=== PATIENT | male | born 1950 | race Two or more races ===

== ENCOUNTER → 2021-08-25 | Outpatient (CLI) | payer MEDICARE, BC ==
[2021-08-25 14:30] LABS: BUN/Creatinine Ratio 17.1; Calcium 9.7 mg/dL (8.5-10.1); Potassium 4.7 mmol/L (3.5-5.1)
== END | disposition home or self-care (01) ==
LOC: LAB 12:29
PROVIDERS: ATTEND Student in an Organized Health Care Education/Training Program
DX: E11.9 Type 2 diabetes mellitus without complications (principal)
CPT/HCPCS: 36415; 80048; 82043; 83036

== ENCOUNTER → 2022-03-28 | Outpatient (CLI) | payer MEDICARE, BC ==
[2022-03-28 08:41] LABS: Basophils # (auto) 0.1 10 ^3/uL (0-0.2); Basophils % (auto) 1.5 % (0.0-2.0); Eosinophils # (auto) 0.5 10 ^3/uL (0-0.8); Hematocrit 45.6 % (41.0-53.0); Hemoglobin 14.8 g/dL (13.5-17.5); Lymphocytes # (auto) 1.5 10 ^3/uL (0.4-5.4); Lymphocytes % (auto) 23.8 % (10.0-50.0); Mean Corpuscular Hemoglobin 28.9 pg (28.0-32.0); Mean Corpuscular Hgb Conc. 32.4 g/dL (32.0-36.0); Mean Corpuscular Volume 89.1 fL (80.0-100.0); Monocytes # (auto) 0.4 10 ^3/uL (0-1.3); Monocytes % (auto) 6.5 % (0.0-12.0); Neutrophils # (auto) 3.8 10 ^3/uL (1.6-8.6); Neutrophils % (auto) 60.2 % (37.0-80.0); Nucleated Red Blood Cells % 0.2 %; Red Blood Cells 5.12 10^6/uL (4.5-5.90); Red Cell Distribution Width 14.5 % (11.8-14.3); White Blood Cell 6.4 10^3/uL (4.4-10.8)
[2022-03-28 08:47] LABS: Urine Bacteria NONE SEEN /hpf (None Seen); Urine Blood Negative /uL (Negative); Urine Specific Gravity 1.028 (1.001-1.035); Urine WBC <1 /hpf (0 - 3)
[2022-03-28 09:32] LABS: Potassium 4.1 mmol/L (3.5-5.1)
[2022-03-28 09:40] LABS: Calcium 8.7 mg/dL (8.5-10.1)
[2022-03-28 09:43] LABS: BUN/Creatinine Ratio 17.9
== END | disposition home or self-care (01) ==
LOC: LAB 08:21
PROVIDERS: ATTEND Student in an Organized Health Care Education/Training Program
DX: E11.9 Type 2 diabetes mellitus without complications (principal)
CPT/HCPCS: 36415; 80048; 81001; 83036; 85025

== ENCOUNTER → 2022-09-29 | Outpatient (CLI) | payer MEDICARE, BC ==
[2022-09-29 08:43] LABS: Basophils # (auto) 0.1 10 ^3/uL (0-0.2); Basophils % (auto) 1.4 % (0.0-2.0); Eosinophils # (auto) 0.3 10 ^3/uL (0-0.8); Hematocrit 46.8 % (41.0-53.0); Hemoglobin 15.9 g/dL (13.5-17.5); Lymphocytes # (auto) 1.5 10 ^3/uL (0.4-5.4); Lymphocytes % (auto) 24.9 % (10.0-50.0); Mean Corpuscular Hemoglobin 29.6 pg (28.0-32.0); Mean Corpuscular Hgb Conc. 33.9 g/dL (32.0-36.0); Mean Corpuscular Volume 87.3 fL (80.0-100.0); Monocytes # (auto) 0.4 10 ^3/uL (0-1.3); Monocytes % (auto) 5.9 % (0.0-12.0); Neutrophils # (auto) 3.8 10 ^3/uL (1.6-8.6); Neutrophils % (auto) 62.8 % (37.0-80.0); Nucleated Red Blood Cells % 0.1 %; Red Blood Cells 5.36 10^6/uL (4.5-5.90); Red Cell Distribution Width 14.9 % (11.8-14.3); White Blood Cell 6.1 10^3/uL (4.4-10.8)
[2022-09-29 09:52] LABS: Potassium 3.9 mmol/L (3.5-5.1)
[2022-09-29 10:03] LABS: Albumin 3.8 g/dL (3.4-5.0); Bilirubin, Total 0.8 mg/dL (0.2-1.0); Calcium 9.1 mg/dL (8.5-10.1); Total Protein 8.2 g/dL (6.4-8.2)
[2022-09-29 12:23] LABS: Urine Bacteria NONE SEEN /hpf (None Seen); Urine Blood Negative /uL (Negative); Urine Specific Gravity 1.032 (1.001-1.035); Urine WBC <1 /hpf (0 - 3)
[2022-10-01 18:06] LABS: IgE Mouse Urine <0.10 kU/L (Class 0)
== END | disposition home or self-care (01) ==
LOC: LAB 08:09
PROVIDERS: ATTEND Student in an Organized Health Care Education/Training Program
DX: I12.9 Hypertensive chronic kidney disease with stage 1 through stage 4 chronic kidney disease, or unspecified chronic kidney disease (principal); E11.22 Type 2 diabetes mellitus with diabetic chronic kidney disease; N18.9 Chronic kidney disease, unspecified; L50.0 Allergic urticaria
CPT/HCPCS: 36415; 80053; 80061; 81001; 82785; 83036; 84443; 85025

== ENCOUNTER → 2023-01-04 | Outpatient (CLI) | payer MEDICARE, BC ==
[2023-01-04 07:25] LABS: Basophils # (auto) 0.1 10 ^3/uL (0-0.2); Basophils % (auto) 0.9 % (0.0-2.0); Eosinophils # (auto) 0.4 10 ^3/uL (0-0.8); Hematocrit 47.6 % (41.0-53.0); Hemoglobin 15.5 g/dL (13.5-17.5); Lymphocytes # (auto) 1.8 10 ^3/uL (0.4-5.4); Lymphocytes % (auto) 24.7 % (10.0-50.0); Mean Corpuscular Hemoglobin 29.5 pg (28.0-32.0); Mean Corpuscular Hgb Conc. 32.7 g/dL (32.0-36.0); Mean Corpuscular Volume 90.1 fL (80.0-100.0); Monocytes # (auto) 0.6 10 ^3/uL (0-1.3); Monocytes % (auto) 7.7 % (0.0-12.0); Neutrophils # (auto) 4.5 10 ^3/uL (1.6-8.6); Neutrophils % (auto) 60.7 % (37.0-80.0); Red Blood Cells 5.28 10^6/uL (4.5-5.90); Red Cell Distribution Width 15.2 % (11.8-14.3); White Blood Cell 7.4 10^3/uL (4.4-10.8)
[2023-01-04 08:10] LABS: Albumin 3.5 g/dL (3.4-5.0); BUN/Creatinine Ratio 22.8 (10.0-20.0); Calcium 9.1 mg/dL (8.5-10.1); Potassium 4.3 mmol/L (3.5-5.1)
[2023-01-04 08:13] LABS: Bilirubin, Total 0.5 mg/dL (0.2-1.0); Total Protein 8.4 g/dL (6.4-8.2)
== END | disposition home or self-care (01) ==
LOC: LAB 07:09
PROVIDERS: ATTEND Student in an Organized Health Care Education/Training Program
DX: Z12.11 Encounter for screening for malignant neoplasm of colon (principal); I10 Essential (primary) hypertension; E11.9 Type 2 diabetes mellitus without complications
CPT/HCPCS: 36415; 80053; 83036; 85025

== ENCOUNTER → 2023-01-09 | Outpatient (CLI) | payer MEDICARE, BC ==
[2023-01-09 13:46] LABS: Urine Bacteria NONE SEEN /hpf (None Seen); Urine Blood Negative /uL (Negative); Urine Budding Yeast MODERATE /hpf (None Seen); Urine Specific Gravity 1.032 (1.001-1.035); Urine WBC 2 /hpf (0 - 3)
== END | disposition home or self-care (01) ==
LOC: LAB 13:03
PROVIDERS: ATTEND Student in an Organized Health Care Education/Training Program
DX: Z12.11 Encounter for screening for malignant neoplasm of colon (principal); I10 Essential (primary) hypertension; E11.9 Type 2 diabetes mellitus without complications
CPT/HCPCS: 81001; 82274

== ENCOUNTER 2023-03-28 23:54 | Inpatient (IN) | payer MEDICARE, BC ==
[~2023-03-28] VITALS: Ht 177.8 cm; Wt 99.4 kg
[2023-03-29 00:52] LABS: Basophils # (auto) 0 10 ^3/uL (0-0.2); Basophils % (auto) 0.2 % (0.0-2.0); Eosinophils # (auto) 0 10 ^3/uL (0-0.8); Hematocrit 49.6 % (41.0-53.0); Hemoglobin 15.8 g/dL (13.5-17.5); Lymphocytes # (auto) 0.8 10 ^3/uL (0.4-5.4); Lymphocytes % (auto) 4.6 % (10.0-50.0); Mean Corpuscular Hemoglobin 29.7 pg (28.0-32.0); Mean Corpuscular Hgb Conc. 31.8 g/dL (32.0-36.0); Mean Corpuscular Volume 93.4 fL (80.0-100.0); Monocytes # (auto) 0.9 10 ^3/uL (0-1.3); Monocytes % (auto) 5.2 % (0.0-12.0); Neutrophils # (auto) 14.7 10 ^3/uL (1.6-8.6); Red Blood Cells 5.31 10^6/uL (4.5-5.90); Red Cell Distribution Width 15.1 % (11.8-14.3); White Blood Cell 16.3 10^3/uL (4.4-10.8)
[2023-03-29] MEDS ORDERED: ONDANSETRON HCL 4 MG/2 ML VIAL IV ONE (01:00)
[2023-03-29 01:07] LABS: Alanine Aminotransferase 20 U/L (16-61); Albumin 3.4 g/dL (3.4-5.0); Anion Gap 31 (5-15); Aspartate Aminotransferase 15 U/L (15-37); BUN/Creatinine Ratio 11.4 (10.0-20.0); Blood Urea Nitrogen 32 mg/dL (7-18); Carbon Dioxide 12 mmol/L (21-32); Chloride 91 mmol/L (98-107); GFR African American 29 mL/min; GFR Non-African American 24 mL/min; Lipase 145 U/L (73-393); Sodium 134 mmol/L (136-145)
[2023-03-29 01:09] LABS: Alkaline Phosphatase 124 U/L (45-117); Bilirubin, Total 0.8 mg/dL (0.2-1.0); Total Protein 9.1 g/dL (6.4-8.2)
[2023-03-29 01:15] LABS: Calcium 13.7 mg/dL (8.5-10.1); Glucose 426 mg/dL (74-106)
[2023-03-29] MEDS ORDERED: DEXTROSE (50%) 50ML SYRG IV PRN ×2 (02:00→21:00)
[2023-03-29] MEDS ORDERED: InsuLIN R (HUMAN) 100 UNITS in SODIUM CHL 0.9% 99 ML IV SCH (02:00)
[2023-03-29] MEDS: SODIUM CHLORIDE 0.9% 1,000 ML IV SCH ×4 (02:13→16:18)
[2023-03-29] MEDS ORDERED: InsuLIN REG 1unit/0.01ml Soln (100units/ml) ONE (02:17)
[2023-03-29] MEDS ORDERED: INSULIN LANTUS (GLARGINE) 1 /0.01ml (100units/ml) SC ONE (02:30)
[2023-03-29 02:47] LABS: Magnesium 1.9 mg/dL (1.6-2.6); Phosphorus 8.6 mg/dL (2.5-4.90)
[2023-03-29] MEDS ORDERED: ACCU-CHEK COMFORT CURVE STRIP VI SCH (03:00)
[2023-03-29] MEDS: ACCU-CHEK COMFORT CURVE STRIP VI SCH ×13 (03:58→21:09)
[2023-03-29 04:22] LABS: Urine Bacteria NONE SEEN /hpf (None Seen); Urine Blood Negative /uL (Negative); Urine Specific Gravity 1.017 (1.001-1.035); Urine WBC 1 /hpf (0 - 3)
[2023-03-29] MEDS ORDERED: MORPHINE SULFATE INJ 2 MG/ml SYRG IV PRN (05:30)
[2023-03-29] MEDS ORDERED: NITROGLYCERIN 0.4 MG SL TAB SL PRN (05:30)
[2023-03-29] MEDS ORDERED: ONDANSETRON HCL 4 MG/2 ML VIAL IV PRN (05:30)
[2023-03-29] MEDS ORDERED: SODIUM CHLORIDE 0.9% 1,000 ML IV SCH (06:00)
[2023-03-29 08:24] LABS: BUN/Creatinine Ratio 13.2 (10.0-20.0); Calcium 12.2 mg/dL (8.5-10.1); Potassium 4.2 mmol/L (3.5-5.1)
[2023-03-29] MEDS: PANTOPRAZOLE 40 MG/10 ML VIAL INJ IV SCH (09:33)
[2023-03-29 14:13] LABS: BUN/Creatinine Ratio 13.4 (10.0-20.0); Calcium 11.6 mg/dL (8.5-10.1); Potassium 4.1 mmol/L (3.5-5.1)
[2023-03-29] MEDS: PIPERACILLIN-TAZOB 3.375GM 100 ML IV SCH ×2 (16:21→22:05)
[2023-03-29 20:22] LABS: BUN/Creatinine Ratio 13.2 (10.0-20.0); Calcium 10.6 mg/dL (8.5-10.1); Potassium 3.8 mmol/L (3.5-5.1)
[2023-03-29] MEDS: DOCUSATE SOD 100 MG CAP PO SCH (22:05)
[2023-03-30] MEDS: ACCU-CHEK COMFORT CURVE STRIP VI SCH ×7 (00:14→23:51)
[2023-03-30] MEDS: InsuLIN REG 1unit/0.01ml Soln (100units/ml) SC SCH ×7 (00:18→23:51)
[2023-03-30] MEDS: ACETAMINOPHEN 325 MG TAB PO PRN ×2 (01:17→14:20)
[2023-03-30 05:19] LABS: Basophils # (auto) 0 10 ^3/uL (0-0.2); Basophils % (auto) 0.3 % (0.0-2.0); Eosinophils # (auto) 0 10 ^3/uL (0-0.8); Eosinophils % (auto) 0.1 % (0.0-7.0); Hematocrit 38.3 % (41.0-53.0); Hemoglobin 12.8 g/dL (13.5-17.5); Lymphocytes # (auto) 1.4 10 ^3/uL (0.4-5.4); Lymphocytes % (auto) 10.4 % (10.0-50.0); Mean Corpuscular Hemoglobin 29.8 pg (28.0-32.0); Mean Corpuscular Hgb Conc. 33.3 g/dL (32.0-36.0); Mean Corpuscular Volume 89.3 fL (80.0-100.0); Monocytes # (auto) 1.1 10 ^3/uL (0-1.3); Monocytes % (auto) 8.2 % (0.0-12.0); Neutrophils # (auto) 10.9 10 ^3/uL (1.6-8.6); Red Blood Cells 4.29 10^6/uL (4.5-5.90); Red Cell Distribution Width 14.5 % (11.8-14.3); White Blood Cell 13.5 10^3/uL (4.4-10.8)
[2023-03-30] MEDS ORDERED: dilTIAZem 25 MG/5 ML VIAL IV ONE ×3 (05:40→06:00)
[2023-03-30 05:41] LABS: Albumin 2.6 g/dL (3.4-5.0); Calcium 10.7 mg/dL (8.5-10.1); Potassium 3.4 mmol/L (3.5-5.1)
[2023-03-30 05:46] LABS: Bilirubin, Total 0.5 mg/dL (0.2-1.0); Total Protein 6.8 g/dL (6.4-8.2)
[2023-03-30] MEDS: PIPERACILLIN-TAZOB 3.375GM 100 ML IV SCH ×3 (06:02→22:55)
[2023-03-30] MEDS ORDERED: AMIODARONE HCL 150 MG in D5W 5% 100 ML IV ONE (08:15)
[2023-03-30] MEDS ORDERED: AMIODARONE 450mg/250ml AE 250 ML IV SCH (08:30)
[2023-03-30] MEDS: SODIUM CHLORIDE 0.9% 1,000 ML IV SCH ×4 (09:24→22:59)
[2023-03-30] MEDS ORDERED: MAGNESIUM SULFATE 1GM/100ML 100 ML IV ONE (09:45)
[2023-03-30] MEDS ORDERED: POTASSIUM CHLORIDE 60 MEQ, LIDOCAINE 1% (LOCAL ANESTH.) 6 ML in SODIUM CHL 0.9% 500 ML IV ONE (09:45)
[2023-03-30] MEDS: DOCUSATE SOD 100 MG CAP PO SCH ×2 (10:00→22:54)
[2023-03-30 10:19] LABS: Hematocrit 40.8 % (41.0-53.0); Hemoglobin 13.2 g/dL (13.5-17.5)
[2023-03-30] MEDS: PANTOPRAZOLE 40 MG/10 ML VIAL INJ IV SCH (11:02)
[2023-03-30] MEDS: INSULIN LANTUS (GLARGINE) 1 /0.01ml (100units/ml) SC SCH (11:06)
[2023-03-30] MEDS ORDERED: dilTIAZem HCL 60 MG TAB GT SCH (12:30)
[2023-03-30] MEDS: dilTIAZem HCL 60 MG TAB PO SCH ×2 (14:20→20:55)
[2023-03-30] MEDS ORDERED: AMIODARONE HCL 200 MG TAB PO ONE (16:00)
[2023-03-30] MEDS: MORPHINE SULFATE INJ 2 MG/ml SYRG IV PRN (16:20)
[2023-03-30] MEDS ORDERED: AMIODARONE HCL 200 MG TAB PO SCH (22:00)
[2023-03-31] MEDS: dilTIAZem HCL 60 MG TAB PO SCH ×3 (01:17→20:46)
[2023-03-31] MEDS: MORPHINE SULFATE INJ 2 MG/ml SYRG IV PRN ×2 (03:42→17:08)
[2023-03-31] MEDS: InsuLIN REG 1unit/0.01ml Soln (100units/ml) SC SCH ×6 (05:06→23:51)
[2023-03-31] MEDS: ACCU-CHEK COMFORT CURVE STRIP VI SCH ×6 (05:06→23:49)
[2023-03-31] MEDS: PIPERACILLIN-TAZOB 3.375GM 100 ML IV SCH ×3 (06:01→22:28)
[2023-03-31 07:46] LABS: BUN/Creatinine Ratio 12.9 (10.0-20.0); Magnesium 1.7 mg/dL (1.6-2.6); Potassium 3.5 mmol/L (3.5-5.1)
[2023-03-31] MEDS ORDERED: POTASSIUM EFFERVESENT TAB 25 MEQ PO ONE (08:45)
[2023-03-31] MEDS ORDERED: MAGNESIUM SULFATE 1GM/100ML 100 ML IV ONE (08:45)
[2023-03-31] MEDS: PANTOPRAZOLE 40 MG/10 ML VIAL INJ IV SCH (09:50)
[2023-03-31] MEDS: DOCUSATE SOD 100 MG CAP PO SCH ×2 (09:50→20:41)
[2023-03-31] MEDS: APIXABAN 5 MG TAB PO SCH ×2 (09:50→20:40)
[2023-03-31] MEDS: INSULIN LANTUS (GLARGINE) 1 /0.01ml (100units/ml) SC SCH (09:51)
[2023-03-31] MEDS: SODIUM CHLORIDE 0.9% 1,000 ML IV SCH ×3 (12:00→22:27)
[2023-03-31] MEDS ORDERED: SODIUM CHLORIDE 0.9% 1,000 ML IV ONE (16:30)
[2023-03-31 17:00] VITALS: BP 122/52
[2023-03-31 22:00] VITALS: BP 137/60
[2023-04-01] MEDS: ACCU-CHEK COMFORT CURVE STRIP VI SCH ×5 (04:00→20:00)
[2023-04-01] MEDS: InsuLIN REG 1unit/0.01ml Soln (100units/ml) SC SCH ×6 (04:03→23:21)
[2023-04-01 05:00] VITALS: BP 135/63
[2023-04-01] MEDS: PIPERACILLIN-TAZOB 3.375GM 100 ML IV SCH ×3 (05:43→22:07)
[2023-04-01 05:54] LABS: BUN/Creatinine Ratio 10.8 (10.0-20.0); Calcium 8.5 mg/dL (8.5-10.1); Magnesium 1.7 mg/dL (1.6-2.6); Potassium 3.5 mmol/L (3.5-5.1)
[2023-04-01] MEDS: SODIUM CHLORIDE 0.9% 1,000 ML IV SCH ×3 (06:55→20:15)
[2023-04-01 08:45] VITALS: BP 146/77
[2023-04-01] MEDS ORDERED: EMPA1TAB5 PO (09:58)
[2023-04-01] MEDS ORDERED: APIX5TAB PO (09:58)
[2023-04-01] MEDS ORDERED: METF-370 PO (09:58)
[2023-04-01] MEDS ORDERED: ALBU2TAB11 IN (09:58)
[2023-04-01] MEDS ORDERED: PIO30T PO (09:58)
[2023-04-01] MEDS ORDERED: PIOG1TAB36 PO (09:58)
[2023-04-01] MEDS ORDERED: INSU1.2I SC (09:58)
[2023-04-01] MEDS ORDERED: MONT10TA23 PO (09:58)
[2023-04-01] MEDS ORDERED: ATOR40TA52 PO (09:58)
[2023-04-01] MEDS ORDERED: INSLISPI SC (09:58)
[2023-04-01] MEDS: INSULIN LANTUS (GLARGINE) 1 /0.01ml (100units/ml) SC SCH (10:00)
[2023-04-01] MEDS ORDERED: ALBUTEROL SULF 2.5 MG/0.5ML(0.5%) NEB SOLN NEB PRN (10:00)
[2023-04-01 10:15] VITALS: BP 140/71
[2023-04-01] MEDS: PANTOPRAZOLE 40 MG/10 ML VIAL INJ IV SCH (10:28)
[2023-04-01] MEDS: DOCUSATE SOD 100 MG CAP PO SCH ×2 (10:28→22:04)
[2023-04-01] MEDS: dilTIAZem HCL 60 MG TAB PO SCH ×2 (10:29→22:04)
[2023-04-01] MEDS: APIXABAN 5 MG TAB PO SCH ×2 (10:29→22:04)
[2023-04-01 12:56] VITALS: BP 133/81
[2023-04-01] MEDS: MORPHINE SULFATE INJ 2 MG/ml SYRG IV PRN (12:58)
[2023-04-01] MEDS: ALBUTEROL SULF 2.5 MG/0.5ML(0.5%) NEB SOLN NEB SCH ×2 (13:09→18:18)
[2023-04-01 17:00] VITALS: BP 132/80
[2023-04-01 22:00] VITALS: BP 144/65
[2023-04-02] MEDS: ALBUTEROL SULF 2.5 MG/0.5ML(0.5%) NEB SOLN NEB SCH ×3 (00:15→11:25)
[2023-04-02] MEDS: SODIUM CHLORIDE 0.9% 1,000 ML IV SCH ×2 (02:55→10:03)
[2023-04-02] MEDS: InsuLIN REG 1unit/0.01ml Soln (100units/ml) SC SCH ×3 (04:00→12:43)
[2023-04-02] MEDS: ACCU-CHEK COMFORT CURVE STRIP VI SCH ×4 (04:00→12:38)
[2023-04-02 05:00] VITALS: BP 124/75
[2023-04-02] MEDS: PIPERACILLIN-TAZOB 3.375GM 100 ML IV SCH (06:00)
[2023-04-02 09:23] VITALS: BP 106/61
[2023-04-02] MEDS: dilTIAZem HCL 60 MG TAB PO SCH (10:00)
[2023-04-02] MEDS: PANTOPRAZOLE 40 MG/10 ML VIAL INJ IV SCH (10:03)
[2023-04-02] MEDS: APIXABAN 5 MG TAB PO SCH (10:03)
[2023-04-02] MEDS: INSULIN LANTUS (GLARGINE) 1 /0.01ml (100units/ml) SC SCH (10:14)
[2023-04-02] MEDS: DOCUSATE SOD 100 MG CAP PO SCH (10:17)
[2023-04-02 13:29] VITALS: BP 119/60
[2023-04-02 15:02] VITALS: BP 106/61
== END 2023-04-02 15:30 | DRG 871 ==
LOC: EDBD 23:54 → ER 23:57 → TELE 03-29 05:25 → TELE-EAST 03-31 15:45
PROVIDERS: ADMIT Family Medicine; ATTEND Family Medicine
PROC: 05HA33Z Insertion of Infusion Device into Left Brachial Vein, Percutaneous Approach (ICD-10-PCS; principal; 2023-03-29)
PROC: B54NZZA Ultrasonography of Left Upper Extremity Veins, Guidance (ICD-10-PCS; 2023-03-29)
DX: A41.9 Sepsis, unspecified organism (principal); E11.10 Type 2 diabetes mellitus with ketoacidosis without coma; G93.41 Metabolic encephalopathy; J18.9 Pneumonia, unspecified organism; S22.42XA Multiple fractures of ribs, left side, initial encounter for closed fracture; I48.20 Chronic atrial fibrillation, unspecified; N17.9 Acute kidney failure, unspecified; I69.354 Hemiplegia and hemiparesis following cerebral infarction affecting left non-dominant side; E86.0 Dehydration; D64.9 Anemia, unspecified; E66.9 Obesity, unspecified; I45.10 Unspecified right bundle-branch block; E78.5 Hyperlipidemia, unspecified; N18.9 Chronic kidney disease, unspecified; X58.XXXA Exposure to other specified factors, initial encounter; Z20.822 Contact with and (suspected) exposure to COVID-19; E11.22 Type 2 diabetes mellitus with diabetic chronic kidney disease; I12.9 Hypertensive chronic kidney disease with stage 1 through stage 4 chronic kidney disease, or unspecified chronic kidney disease; Y93.89 Activity, other specified; Y92.89 Other specified places as the place of occurrence of the external cause; Y99.8 Other external cause status; Z68.31 Body mass index [BMI] 31.0-31.9, adult; Z87.891 Personal history of nicotine dependence; Z74.01 Bed confinement status; Z87.828 Personal history of other (healed) physical injury and trauma; Z99.3 Dependence on wheelchair
CPT/HCPCS: 36415; 36600; 70450; 71045; 71250; 74176; 80048; 80053; 81001; 82010; 82805; 82962; 83690; 83735; 83930; 84100; 84443; 84484; 85014; 85018; 85025; 87040; 87426; 93005; 93306; 94640; 97163; C9113; G0378; J1815; J2001; J2405; J2543; J7060

== ENCOUNTER → 2023-07-24 | Outpatient (CLI) | payer MEDICARE, BC ==
[~2023-07-24] MED LIST: ALBU2TAB11 IN; APIX5TAB PO; ATOR40TA52 PO; EMPA1TAB5 PO; INSLISPI SC; INSU1.2I SC; METF-370 PO; MONT10TA23 PO; PIO30T PO; PIOG1TAB36 PO
[2023-07-24 08:09] LABS: Urine WBC None Seen /hpf (0 - 3)
[2023-07-24 08:12] LABS: Basophils # (auto) 0.1 10 ^3/uL (0-0.2); Basophils % (auto) 1.3 % (0.0-2.0); Eosinophils # (auto) 0.5 10 ^3/uL (0-0.8); Eosinophils % (auto) 6.3 % (0.0-7.0); Hematocrit 44.2 % (41.0-53.0); Hemoglobin 14.6 g/dL (13.5-17.5); Lymphocytes # (auto) 1.8 10 ^3/uL (0.4-5.4); Lymphocytes % (auto) 22.9 % (10.0-50.0); Mean Corpuscular Hemoglobin 29.1 pg (28.0-32.0); Mean Corpuscular Volume 88.1 fL (80.0-100.0); Monocytes # (auto) 0.5 10 ^3/uL (0-1.3); Monocytes % (auto) 6.5 % (0.0-12.0); Neutrophils # (auto) 4.9 10 ^3/uL (1.6-8.6); Red Blood Cells 5.02 10^6/uL (4.5-5.90); Red Cell Distribution Width 13.8 % (11.8-14.3); White Blood Cell 7.8 10^3/uL (4.4-10.8)
[2023-07-24 08:37] LABS: Urine Bacteria NONE SEEN /hpf (None Seen); Urine Blood Negative /uL (Negative); Urine Clarity Clear (Clear); Urine Protein, UAD 1+ (Negative); Urine Specific Gravity 1.019 (1.001-1.035); Urine Urobilinogen Normal (Negative); Urine pH 5.5 (5.0-8.0)
[2023-07-24 08:39] LABS: Alanine Aminotransferase 19 U/L (7-40); Alkaline Phosphatase 88 U/L (46-116); Anion Gap 5 (5-15); Aspartate Aminotransferase 19 U/L (13-40); BUN/Creatinine Ratio 17.5 (10.0-20.0); Blood Urea Nitrogen 20 mg/dL (9-23); Calcium 8.9 mg/dL (8.5-10.1); Carbon Dioxide 27 mmol/L (20-30); Chloride 105 mmol/L (98-107); Cholesterol 154 mg/dL (< 200); Glucose 126 mg/dL (74-106); HDL Cholesterol 36 mg/dL (40-59); LDL Cholesterol 105 mg/dL (< 100); Potassium 4.3 mmol/L (3.5-5.1); Sodium 137 mmol/L (136-145); Triglycerides 120 mg/dL (< 150)
[2023-07-24 08:40] LABS: Bilirubin, Total 0.6 mg/dL (0.2-1.0); Total Protein 7.5 g/dL (5.7-8.2); Urine Color Straw (Yellow)
== END | disposition home or self-care (01) ==
LOC: LAB 07:55
DX: E11.22 Type 2 diabetes mellitus with diabetic chronic kidney disease (principal); N18.9 Chronic kidney disease, unspecified; R80.9 Proteinuria, unspecified
CPT/HCPCS: 36415; 80053; 80061; 81001; 83036; 85025

== ENCOUNTER 2023-09-06 20:55 | Inpatient (IN) | payer MEDICARE, BC ==
[~2023-09-06] VITALS: Ht 185.4 cm; Wt 93.7 kg
[2023-09-06 21:43] LABS: Basophils # (auto) 0 10 ^3/uL (0-0.2); Basophils % (auto) 0.7 % (0.0-2.0); Eosinophils # (auto) 0.1 10 ^3/uL (0-0.8); Eosinophils % (auto) 2.3 % (0.0-7.0); Hematocrit 42.5 % (41.0-53.0); Lymphocytes # (auto) 1.6 10 ^3/uL (0.4-5.4); Lymphocytes % (auto) 33.4 % (10.0-50.0); Mean Corpuscular Hgb Conc. 32.9 g/dL (32.0-36.0); Mean Corpuscular Volume 88.1 fL (80.0-100.0); Monocytes # (auto) 0.5 10 ^3/uL (0-1.3); Monocytes % (auto) 9.5 % (0.0-12.0); Neutrophils # (auto) 2.6 10 ^3/uL (1.6-8.6); Neutrophils % (auto) 54.1 % (37.0-80.0); Nucleated Red Blood Cells % 0.1 %; Red Blood Cells 4.82 10^6/uL (4.5-5.90); Red Cell Distribution Width 14.7 % (11.8-14.3); White Blood Cell 4.9 10^3/uL (4.4-10.8)
[2023-09-06 21:57] LABS: INR 1.08 (0.9-1.15); Prothrombin Time 11.3 sec (9.3-11.8)
[2023-09-06 22:15] LABS: Alanine Aminotransferase 29 U/L (7-40); Alkaline Phosphatase 120 U/L (46-116); Anion Gap 5 (5-15); Aspartate Aminotransferase 35 U/L (13-40); Blood Urea Nitrogen 20 mg/dL (9-23); Calcium 8.4 mg/dL (8.7-10.4); Carbon Dioxide 26 mmol/L (20-30); Chloride 101 mmol/L (98-107); Glucose 286 mg/dL (74-106); Magnesium 1.6 mg/dL (1.6-2.6); Potassium 4.6 mmol/L (3.5-5.1); Sodium 132 mmol/L (136-145)
[2023-09-06 22:16] LABS: Albumin 3.6 g/dL (3.2-4.8)
[2023-09-06 22:17] LABS: Bilirubin, Total 0.3 mg/dL (0.2-1.0); Total Protein 6.7 g/dL (5.7-8.2)
[2023-09-07] VITALS (10 sets, daily range): BP systolic 127–156; BP diastolic 55–68; PULSE 75–90; RESP 18–19; TEMP 98.1–98.7; O2SAT 90–96
[2023-09-07] MEDS ORDERED: AZITHROMYCIN 500MG/ 250ML 250 ML IV ONE (00:15)
[2023-09-07] MEDS ORDERED: cefTRIAXone 1GM/50ML D5W 50 ML IV ONE ×3 (00:15→13:15)
[2023-09-07] MEDS ORDERED: FUROSEMIDE 40 MG/4 ML VIAL IV ONE (00:15)
[2023-09-07] MEDS ORDERED: ASPirin 325 MG TAB PO ONE (00:15)
[2023-09-07] MEDS ORDERED: ONDANSETRON HCL 4 MG/2 ML VIAL IV ONE (00:15)
[2023-09-07] MEDS ORDERED: MORPHINE SULFATE 4 MG/ML SYR/VIAL IV ONE (00:15)
[2023-09-07] MEDS ORDERED: ENOXAPARIN SOD 100 MG/1 ML SYRINGE SC ONE (00:15)
[2023-09-07] MEDS ORDERED: NITROGLYCERIN 0.4 MG SL TAB SL PRN (01:00)
[2023-09-07] MEDS ORDERED: MORPHINE SULFATE INJ 2 MG/ml SYRG IV PRN (01:00)
[2023-09-07] MEDS ORDERED: guaiFENesin 200 MG/10 ML UD PO ONE (02:30)
[2023-09-07] MEDS ORDERED: DEXTROSE (50%) 50ML SYRG IV PRN (05:00)
[2023-09-07] MEDS: ACCU-CHEK COMFORT CURVE STRIP VI SCH ×4 (06:13→23:26)
[2023-09-07] MEDS: InsuLIN REG 1unit/0.01ml Soln (100units/ml) SC SCH ×4 (06:14→23:26)
[2023-09-07] MEDS: ACETAMINOPHEN 325 MG TAB PO PRN (06:27)
[2023-09-07] MEDS: APIXABAN 5 MG TAB PO SCH ×2 (10:00→20:24)
[2023-09-07] MEDS ORDERED: InsuLIN REG 1unit/0.01ml Soln (100units/ml) ONE (12:04)
[2023-09-07] MEDS: METOPROLOL TARTRATE 50 MG TAB PO SCH ×2 (12:17→20:25)
[2023-09-07] MEDS: FUROSEMIDE 40 MG TAB PO SCH (12:18)
[2023-09-07] MEDS: MORPHINE SULFATE INJ 2 MG/ml SYRG IV PRN ×2 (14:25→20:22)
[2023-09-07] MEDS: ONDANSETRON HCL 4 MG/2 ML VIAL IV PRN ×2 (14:33→20:08)
[2023-09-07] MEDS: amLODIPine BESYLATE 5 MG TAB PO SCH (18:15)
[2023-09-07] MEDS ORDERED: amLODIPine BESYLATE 5 MG TAB ONE (18:26)
[2023-09-07] MEDS: ATORVASTATIN 20 MG TAB PO SCH (20:23)
[2023-09-08] VITALS (11 sets, daily range): BP systolic 113–141; BP diastolic 49–65; PULSE 58–69; RESP 16–19; TEMP 97.4–99.2; O2SAT 90–95
[2023-09-08] MEDS: ACCU-CHEK COMFORT CURVE STRIP VI SCH ×3 (05:31→18:41)
[2023-09-08] MEDS: InsuLIN REG 1unit/0.01ml Soln (100units/ml) SC SCH ×3 (05:34→18:34)
[2023-09-08 07:32] LABS: Chloride 100 mmol/L (98-107); Potassium 3.7 mmol/L (3.5-5.1); Sodium 134 mmol/L (136-145)
[2023-09-08 07:33] LABS: Anion Gap 11 (5-15); Calcium 8.3 mg/dL (8.5-10.1); Carbon Dioxide 23 mmol/L (20-30)
[2023-09-08 07:38] LABS: BUN/Creatinine Ratio 15.4 (10.0-20.0); Basophils # (auto) 0 10 ^3/uL (0-0.2); Basophils % (auto) 0.9 % (0.0-2.0); Blood Urea Nitrogen 16 mg/dL (9-23); Eosinophils # (auto) 0 10 ^3/uL (0-0.8); Eosinophils % (auto) 0.6 % (0.0-7.0); Glucose 200 mg/dL (74-106); Hematocrit 39.9 % (41.0-53.0); Hemoglobin 13.3 g/dL (13.5-17.5); Lymphocytes # (auto) 1.6 10 ^3/uL (0.4-5.4); Lymphocytes % (auto) 35.2 % (10.0-50.0); Mean Corpuscular Hemoglobin 29.1 pg (28.0-32.0); Mean Corpuscular Hgb Conc. 33.5 g/dL (32.0-36.0); Mean Corpuscular Volume 86.9 fL (80.0-100.0); Monocytes # (auto) 0.5 10 ^3/uL (0-1.3); Monocytes % (auto) 11.7 % (0.0-12.0); Neutrophils # (auto) 2.3 10 ^3/uL (1.6-8.6); Neutrophils % (auto) 51.6 % (37.0-80.0); Nucleated Red Blood Cells % 0.2 %; Red Blood Cells 4.59 10^6/uL (4.5-5.90); Red Cell Distribution Width 14.2 % (11.8-14.3); White Blood Cell 4.4 10^3/uL (4.4-10.8)
[2023-09-08] MEDS: amLODIPine BESYLATE 5 MG TAB PO SCH (09:00)
[2023-09-08] MEDS: FUROSEMIDE 40 MG TAB PO SCH (09:00)
[2023-09-08] MEDS: cefTRIAXone 1GM/50ML D5W 50 ML IV SCH (09:01)
[2023-09-08] MEDS: METOPROLOL TARTRATE 50 MG TAB PO SCH ×2 (09:01→22:09)
[2023-09-08] MEDS: APIXABAN 5 MG TAB PO SCH ×2 (09:02→22:10)
[2023-09-08] MEDS: MORPHINE SULFATE INJ 2 MG/ml SYRG IV PRN ×2 (12:46→22:23)
[2023-09-08] MEDS: ONDANSETRON HCL 4 MG/2 ML VIAL IV PRN ×2 (13:04→22:22)
[2023-09-08] MEDS ORDERED: MAGNESIUM SULFATE 1GM/100ML 100 ML IV ONE (14:15)
[2023-09-08] MEDS ORDERED: POTASSIUM CHL 20 Meq TABLET PO ONE (14:15)
[2023-09-08] MEDS ORDERED: FUROSEMIDE 20 MG/2 ML VIAL IV ONE (14:15)
[2023-09-08] MEDS ORDERED: amLODIPine BESYLATE 5 MG TAB PO SCH (18:00)
[2023-09-08] MEDS: FUROSEMIDE 40 MG/4 ML VIAL IV SCH (18:32)
[2023-09-08] MEDS: ATORVASTATIN 20 MG TAB PO SCH (22:09)
[2023-09-09] VITALS (8 sets, daily range): BP systolic 95–172; BP diastolic 55–71; PULSE 60–75; RESP 14–22; TEMP 97.2–98; O2SAT 91–95
[2023-09-09] MEDS: ACCU-CHEK COMFORT CURVE STRIP VI SCH ×4 (00:13→18:14)
[2023-09-09] MEDS: InsuLIN REG 1unit/0.01ml Soln (100units/ml) SC SCH ×4 (00:16→18:13)
[2023-09-09] MEDS: FUROSEMIDE 40 MG/4 ML VIAL IV SCH ×2 (05:49→18:14)
[2023-09-09] MEDS ORDERED: cloNIDine HCL 0.1 MG TAB PO ONE (07:00)
[2023-09-09] MEDS: ONDANSETRON HCL 4 MG/2 ML VIAL IV PRN (08:01)
[2023-09-09] MEDS: cefTRIAXone 1GM/50ML D5W 50 ML IV SCH (08:02)
[2023-09-09] MEDS: amLODIPine BESYLATE 5 MG TAB PO SCH (10:00)
[2023-09-09] MEDS: METOPROLOL TARTRATE 50 MG TAB PO SCH ×2 (10:00→21:49)
[2023-09-09] MEDS: APIXABAN 5 MG TAB PO SCH ×2 (10:40→21:49)
[2023-09-09] MEDS: ATORVASTATIN 20 MG TAB PO SCH (21:48)
[2023-09-10] VITALS (12 sets, daily range): BP systolic 108–128; BP diastolic 59–68; PULSE 9–89; RESP 17–19; TEMP 97.4–98.4; O2SAT 91–97
[2023-09-10] MEDS: ACCU-CHEK COMFORT CURVE STRIP VI SCH ×5 (00:19→20:16)
[2023-09-10] MEDS: InsuLIN REG 1unit/0.01ml Soln (100units/ml) SC SCH ×5 (00:21→20:16)
[2023-09-10] MEDS: ACETAMINOPHEN 325 MG TAB PO PRN (02:47)
[2023-09-10] MEDS: FUROSEMIDE 40 MG/4 ML VIAL IV SCH ×2 (06:22→17:06)
[2023-09-10] MEDS: cefTRIAXone 1GM/50ML D5W 50 ML IV SCH (09:14)
[2023-09-10] MEDS: APIXABAN 5 MG TAB PO SCH ×2 (09:15→21:11)
[2023-09-10] MEDS ORDERED: DEXTROSE (50%) 50ML SYRG IV PRN (09:45)
[2023-09-10] MEDS: amLODIPine BESYLATE 5 MG TAB PO SCH (10:00)
[2023-09-10] MEDS: METOPROLOL TARTRATE 50 MG TAB PO SCH ×2 (10:00→21:11)
[2023-09-10] MEDS: ATORVASTATIN 20 MG TAB PO SCH (21:12)
[2023-09-10] MEDS: ALBUTEROL SULF 2.5 MG/0.5ML(0.5%) NEB SOLN NEB PRN (21:45)
[2023-09-11] VITALS (13 sets, daily range): BP systolic 125–138; BP diastolic 55–70; PULSE 60–93; RESP 16–21; TEMP 97.1–98.3; O2SAT 88–94
[2023-09-11] MEDS: InsuLIN REG 1unit/0.01ml Soln (100units/ml) SC SCH ×6 (00:30→20:30)
[2023-09-11] MEDS: ACCU-CHEK COMFORT CURVE STRIP VI SCH ×6 (04:00→20:22)
[2023-09-11] MEDS: FUROSEMIDE 40 MG/4 ML VIAL IV SCH ×2 (06:15→17:29)
[2023-09-11] MEDS: APIXABAN 5 MG TAB PO SCH ×2 (09:30→21:57)
[2023-09-11] MEDS: cefTRIAXone 1GM/50ML D5W 50 ML IV SCH (09:30)
[2023-09-11] MEDS: METOPROLOL TARTRATE 50 MG TAB PO SCH ×2 (10:00→21:53)
[2023-09-11] MEDS: amLODIPine BESYLATE 5 MG TAB PO SCH (10:00)
[2023-09-11] MEDS: ALBUTEROL SULF 2.5 MG/0.5ML(0.5%) NEB SOLN NEB PRN (13:36)
[2023-09-11] MEDS: HYDROcodone-ACET 5/325MG TAB PO PRN (17:39)
[2023-09-11] MEDS: ATORVASTATIN 20 MG TAB PO SCH (21:53)
[2023-09-12] VITALS (10 sets, daily range): BP systolic 120–143; BP diastolic 57–76; PULSE 62–77; RESP 17–20; TEMP 97.6–98.6; O2SAT 90–99
[2023-09-12] MEDS: ACCU-CHEK COMFORT CURVE STRIP VI SCH ×6 (00:08→20:00)
[2023-09-12] MEDS: InsuLIN REG 1unit/0.01ml Soln (100units/ml) SC SCH ×6 (00:09→20:32)
[2023-09-12] MEDS: ONDANSETRON HCL 4 MG/2 ML VIAL IV PRN ×3 (04:35→21:47)
[2023-09-12] MEDS: FUROSEMIDE 40 MG/4 ML VIAL IV SCH ×2 (06:06→17:48)
[2023-09-12] MEDS: cefTRIAXone 1GM/50ML D5W 50 ML IV SCH (08:47)
[2023-09-12] MEDS: METOPROLOL TARTRATE 50 MG TAB PO SCH ×2 (08:49→21:43)
[2023-09-12] MEDS: amLODIPine BESYLATE 5 MG TAB PO SCH (08:49)
[2023-09-12] MEDS: APIXABAN 5 MG TAB PO SCH ×2 (09:32→21:43)
[2023-09-12] MEDS: ALBUTEROL SULF 2.5 MG/0.5ML(0.5%) NEB SOLN NEB PRN (10:33)
[2023-09-12] MEDS: ATORVASTATIN 20 MG TAB PO SCH (21:43)
[2023-09-13] VITALS (8 sets, daily range): BP systolic 102–145; BP diastolic 50–85; PULSE 61–89; RESP 16–20; TEMP 36.3; O2SAT 90–95
[2023-09-13] MEDS: InsuLIN REG 1unit/0.01ml Soln (100units/ml) SC SCH ×5 (00:56→16:29)
[2023-09-13] MEDS: ACCU-CHEK COMFORT CURVE STRIP VI SCH ×5 (00:56→16:02)
[2023-09-13] MEDS: FUROSEMIDE 40 MG/4 ML VIAL IV SCH (04:58)
[2023-09-13] MEDS: cefTRIAXone 1GM/50ML D5W 50 ML IV SCH (09:16)
[2023-09-13] MEDS: APIXABAN 5 MG TAB PO SCH (09:17)
[2023-09-13] MEDS: METOPROLOL TARTRATE 50 MG TAB PO SCH (09:17)
[2023-09-13] MEDS: amLODIPine BESYLATE 5 MG TAB PO SCH (09:18)
[2023-09-13 15:01] LABS: COVID19 ANTIGEN SOFIA FIA NEGATIVE (NEGATIVE)
[2023-09-13] MEDS: HYDROcodone-ACET 5/325MG TAB PO PRN (16:03)
== END 2023-09-13 18:23 | DRG 281 ==
LOC: ER 20:55 → EDBD 20:55 → TELE 09-07 01:02 → TELE-WESTW 09-07 08:22
PROVIDERS: ADMIT Nurse Practitioner; ATTEND Family Medicine
DX: I21.4 Non-ST elevation (NSTEMI) myocardial infarction (principal); I48.19 Other persistent atrial fibrillation; I69.354 Hemiplegia and hemiparesis following cerebral infarction affecting left non-dominant side; I50.32 Chronic diastolic (congestive) heart failure; I11.0 Hypertensive heart disease with heart failure; R07.81 Pleurodynia; I25.10 Atherosclerotic heart disease of native coronary artery without angina pectoris; E11.9 Type 2 diabetes mellitus without complications; Z20.822 Contact with and (suspected) exposure to COVID-19; E66.9 Obesity, unspecified; J01.10 Acute frontal sinusitis, unspecified; E78.00 Pure hypercholesterolemia, unspecified; F17.200 Nicotine dependence, unspecified, uncomplicated; Z71.6 Tobacco abuse counseling; I25.2 Old myocardial infarction; Z79.01 Long term (current) use of anticoagulants; Z79.4 Long term (current) use of insulin; Z74.01 Bed confinement status; Z95.828 Presence of other vascular implants and grafts; Z87.828 Personal history of other (healed) physical injury and trauma; Z68.27 Body mass index [BMI] 27.0-27.9, adult; R06.03 Acute respiratory distress
CPT/HCPCS: 36415; 71045; 80048; 80053; 82962; 83036; 83735; 83880; 84484; 85025; 85379; 85610; 85730; 87426; 93005; 94640; 96365; 96368; 96372; 96375; 97110; 97116; 97163; 97530; 99291; G0378; J1815; J2405

== ENCOUNTER → 2023-10-30 | Outpatient (CLI) | payer MEDICARE, BC ==
[2023-10-30 11:09] LABS: Basophils # (auto) 0.1 10 ^3/uL (0-0.2); Basophils % (auto) 0.9 % (0.0-2.0); Eosinophils # (auto) 0.5 10 ^3/uL (0-0.8); Eosinophils % (auto) 6.6 % (0.0-7.0); Hematocrit 41.7 % (41.0-53.0); Hemoglobin 13.6 g/dL (13.5-17.5); Lymphocytes # (auto) 1.7 10 ^3/uL (0.4-5.4); Lymphocytes % (auto) 22.1 % (10.0-50.0); Mean Corpuscular Hemoglobin 29.5 pg (28.0-32.0); Mean Corpuscular Hgb Conc. 32.7 g/dL (32.0-36.0); Mean Corpuscular Volume 90.3 fL (80.0-100.0); Monocytes # (auto) 0.6 10 ^3/uL (0-1.3); Neutrophils # (auto) 4.9 10 ^3/uL (1.6-8.6); Neutrophils % (auto) 62.4 % (37.0-80.0); Nucleated Red Blood Cells % 0.1 %; Red Blood Cells 4.62 10^6/uL (4.5-5.90); White Blood Cell 7.9 10^3/uL (4.4-10.8)
[2023-10-30 11:26] LABS: Alanine Aminotransferase 42 U/L (7-40); Alkaline Phosphatase 127 U/L (46-116); Anion Gap 6 (5-15); Aspartate Aminotransferase 25 U/L (13-40); BUN/Creatinine Ratio 17.7 (10.0-20.0); Blood Urea Nitrogen 20 mg/dL (9-23); Calcium 9.1 mg/dL (8.5-10.1); Carbon Dioxide 29 mmol/L (20-30); Chloride 105 mmol/L (98-107); Cholesterol 132 mg/dL (< 200); Glucose 146 mg/dL (74-106); HDL Cholesterol 41 mg/dL (40-59); LDL Cholesterol 80 mg/dL (< 100); Potassium 3.9 mmol/L (3.5-5.1); Sodium 140 mmol/L (136-145); Triglycerides 103 mg/dL (< 150)
[2023-10-30 11:27] LABS: Bilirubin, Total 0.7 mg/dL (0.2-1.0)
[2023-10-30 14:02] LABS: Urine Bacteria FEW /hpf (None Seen); Urine Blood Negative /uL (Negative); Urine Clarity Clear (Clear); Urine Color Yellow (Yellow); Urine Protein, UAD TRACE (Negative); Urine Specific Gravity 1.026 (1.001-1.035); Urine Urobilinogen Normal (Negative); Urine WBC <1 /hpf (0 - 3); Urine pH 5.5 (5.0-8.0)
[2023-10-30 14:46] LABS: Creatinine, Urine 94.07 mg/dL (30.0-125.0)
== END | disposition home or self-care (01) ==
LOC: LAB 09:29
PROVIDERS: ATTEND Student in an Organized Health Care Education/Training Program
DX: I10 Essential (primary) hypertension (principal); E11.9 Type 2 diabetes mellitus without complications
CPT/HCPCS: 36415; 80053; 80061; 81001; 82043; 82570; 83036; 85025

== ENCOUNTER → 2023-11-29 | Outpatient (CLI) | payer MEDICARE, BC ==
[2023-11-29 08:54] LABS: Basophils # (auto) 0.1 10 ^3/uL (0-0.2); Basophils % (auto) 1.2 % (0.0-2.0); Eosinophils % (auto) 11.7 % (0.0-7.0); Hemoglobin 13.9 g/dL (13.5-17.5); Lymphocytes # (auto) 1.9 10 ^3/uL (0.4-5.4); Lymphocytes % (auto) 21.7 % (10.0-50.0); Mean Corpuscular Hemoglobin 29.3 pg (28.0-32.0); Mean Corpuscular Hgb Conc. 33.1 g/dL (32.0-36.0); Mean Corpuscular Volume 88.7 fL (80.0-100.0); Monocytes # (auto) 0.5 10 ^3/uL (0-1.3); Monocytes % (auto) 5.5 % (0.0-12.0); Neutrophils # (auto) 5.2 10 ^3/uL (1.6-8.6); Neutrophils % (auto) 59.9 % (37.0-80.0); Red Blood Cells 4.74 10^6/uL (4.5-5.90); Red Cell Distribution Width 14.3 % (11.8-14.3); White Blood Cell 8.7 10^3/uL (4.4-10.8)
[2023-11-29 09:56] LABS: Alanine Aminotransferase 26 U/L (7-40); Albumin 4.3 g/dL (3.2-4.8); Alkaline Phosphatase 91 U/L (46-116); Anion Gap 6 (5-15); Aspartate Aminotransferase 23 U/L (13-40); BUN/Creatinine Ratio 20.8 (10.0-20.0); Bilirubin, Total 0.4 mg/dL (0.2-1.0); Blood Urea Nitrogen 21 mg/dL (9-23); Calcium 9.4 mg/dL (8.5-10.1); Carbon Dioxide 29 mmol/L (20-30); Chloride 101 mmol/L (98-107); Glucose 224 mg/dL (74-106); Potassium 4.4 mmol/L (3.5-5.1); Sodium 136 mmol/L (136-145); Total Protein 7.5 g/dL (5.7-8.2)
== END | disposition home or self-care (01) ==
LOC: LAB 08:30
PROVIDERS: ATTEND Student in an Organized Health Care Education/Training Program
DX: Z12.11 Encounter for screening for malignant neoplasm of colon (principal); E11.9 Type 2 diabetes mellitus without complications; I10 Essential (primary) hypertension; R35.1 Nocturia; J30.2 Other seasonal allergic rhinitis
CPT/HCPCS: 36415; 80053; 82785; 83036; 84153; 85025

== ENCOUNTER → 2024-08-21 | Outpatient (CLI) | payer MEDICARE, BC ==
[2024-08-21 08:01] LABS: Basophils # (auto) 0.1 10 ^3/uL (0-0.2); Basophils % (auto) 1.3 % (0.0-2.0); Eosinophils # (auto) 0.4 10 ^3/uL (0-0.8); Eosinophils % (auto) 5.1 % (0.0-7.0); Hematocrit 46.2 % (41.0-53.0); Hemoglobin 15.3 g/dL (13.5-17.5); Lymphocytes # (auto) 1.6 10 ^3/uL (0.4-5.4); Lymphocytes % (auto) 20.8 % (10.0-50.0); Mean Corpuscular Hemoglobin 29.2 pg (28.0-32.0); Mean Corpuscular Hgb Conc. 33.1 g/dL (32.0-36.0); Mean Corpuscular Volume 88.4 fL (80.0-100.0); Monocytes # (auto) 0.4 10 ^3/uL (0-1.3); Monocytes % (auto) 5.9 % (0.0-12.0); Neutrophils % (auto) 66.9 % (37.0-80.0); Nucleated Red Blood Cells % 0.1 %; Platelet Count (auto) 343 10^3/uL (140-450); Red Blood Cells 5.23 10^6/uL (4.5-5.90); Red Cell Distribution Width 15.1 % (11.8-14.3); White Blood Cell 7.5 10^3/uL (4.4-10.8)
[2024-08-21 08:42] LABS: Alanine Aminotransferase 24 U/L (7-40); Alkaline Phosphatase 115 U/L (46-116); Anion Gap 8 (5-15); BUN/Creatinine Ratio 16.1 (10.0-20.0); Blood Urea Nitrogen 18 mg/dL (9-23); Calcium 9.6 mg/dL (8.7-10.4); Carbon Dioxide 29 mmol/L (20-31); Chloride 102 mmol/L (98-107); Potassium 4.9 mmol/L (3.5-5.1); Sodium 139 mmol/L (136-145)
[2024-08-21 08:43] LABS: Albumin 4.2 g/dL (3.2-4.8); Aspartate Aminotransferase 20 U/L (13-40); Bilirubin, Total 0.3 mg/dL (0.2-1.0); Total Protein 7.8 g/dL (5.7-8.2)
[2024-08-21 08:44] LABS: Glucose 228 mg/dL (74-106)
[2024-08-21 11:04] LABS: Urine Bacteria None Seen /hpf (None Seen)
[2024-08-21 11:25] LABS: Urine Blood Negative /uL (Negative); Urine Clarity Clear (Clear); Urine Color Light-Yellow (Yellow); Urine Protein, UAD 1+ (Negative); Urine Specific Gravity 1.025 (1.001-1.035); Urine Urobilinogen Normal (Negative); Urine WBC <1 /hpf (0 - 3); Urine pH 5.5 (5.0-9.0)
[2024-08-21 12:13] LABS: Creatinine, Urine 67.99 mg/dL (30.0-125.0)
== END | disposition home or self-care (01) ==
LOC: LAB 07:33
PROVIDERS: ATTEND Student in an Organized Health Care Education/Training Program
DX: I10 Essential (primary) hypertension (principal); E11.9 Type 2 diabetes mellitus without complications
CPT/HCPCS: 36415; 80053; 81001; 82043; 82570; 83036; 84443; 85025

== ENCOUNTER → 2024-11-13 | Outpatient (CLI) | payer MEDICARE, BC ==
[2024-11-13 08:43] LABS: Basophils # (auto) 0.1 10 ^3/uL (0-0.2); Basophils % (auto) 1.1 % (0.0-2.0); Eosinophils # (auto) 0.2 10 ^3/uL (0-0.8); Eosinophils % (auto) 2.5 % (0.0-7.0); Hematocrit 48.9 % (41.0-53.0); Lymphocytes # (auto) 1.6 10 ^3/uL (0.4-5.4); Lymphocytes % (auto) 20.4 % (10.0-50.0); Mean Corpuscular Hemoglobin 29.1 pg (28.0-32.0); Mean Corpuscular Hgb Conc. 32.7 g/dL (32.0-36.0); Mean Corpuscular Volume 89.2 fL (80.0-100.0); Monocytes # (auto) 0.4 10 ^3/uL (0-1.3); Monocytes % (auto) 5.9 % (0.0-12.0); Neutrophils # (auto) 5.4 10 ^3/uL (1.6-8.6); Neutrophils % (auto) 70.1 % (37.0-80.0); Nucleated Red Blood Cells % 0.1 %; Platelet Count (auto) 370 10^3/uL (140-450); Red Blood Cells 5.49 10^6/uL (4.5-5.90); Red Cell Distribution Width 14.3 % (11.8-14.3); White Blood Cell 7.6 10^3/uL (4.4-10.8)
[2024-11-13 09:19] LABS: Alanine Aminotransferase 21 U/L (7-40); Anion Gap 9 (5-15); Aspartate Aminotransferase 16 U/L (13-40); BUN/Creatinine Ratio 18.5 (10.0-20.0); Calcium 9.9 mg/dL (8.7-10.4); Carbon Dioxide 27 mmol/L (20-31); Triglycerides 126 mg/dL (< 150)
[2024-11-13 09:20] LABS: Albumin 4.6 g/dL (3.2-4.8); Bilirubin, Total 0.5 mg/dL (0.2-1.0); Cholesterol 161 mg/dL (< 200); HDL Cholesterol 42 mg/dL (40-59)
[2024-11-13 09:25] LABS: Alkaline Phosphatase 117 U/L (46-116); Blood Urea Nitrogen 25 mg/dL (9-23); Chloride 98 mmol/L (98-107); Glucose 320 mg/dL (74-106); LDL Cholesterol 108 mg/dL (< 100); Potassium 5.2 mmol/L (3.5-5.1); Sodium 134 mmol/L (136-145); Total Protein 8.2 g/dL (5.7-8.2)
[2024-11-14 08:07] LABS: PSA Free 1.24 ng/mL; Prostate Specific Antigen 5.7 ng/mL (0.0-4.0)
== END | disposition home or self-care (01) ==
LOC: LAB 08:08
PROVIDERS: ATTEND Student in an Organized Health Care Education/Training Program
DX: I10 Essential (primary) hypertension (principal); E11.9 Type 2 diabetes mellitus without complications; R35.1 Nocturia
CPT/HCPCS: 36415; 80053; 80061; 83036; 84153; 84154; 84443; 85025

== ENCOUNTER 2025-06-19 07:55 | Outpatient (CLI) | payer MEDICARE, BC ==
[2025-06-19 08:55] LABS: Hematocrit 42.9 % (41.0-53.0); Hemoglobin 14.5 g/dL (13.5-17.5); Mean Corpuscular Hemoglobin 29.5 pg (28.0-32.0); Mean Corpuscular Volume 87.4 fL (80.0-100.0); Nucleated Red Blood Cells % 0.1 %
[2025-06-19 09:26] LABS: Alanine Aminotransferase 15 U/L (7-40); Albumin 3.9 g/dL (3.2-4.8); Anion Gap 9 (5-15); BUN/Creatinine Ratio 12.6 (10.0-20.0); Bilirubin, Total 0.5 mg/dL (0.2-1.0); Blood Urea Nitrogen 12 mg/dL (9-23); Carbon Dioxide 27 mmol/L (20-31); Chloride 103 mmol/L (98-107); Potassium 4.2 mmol/L (3.5-5.1); Sodium 139 mmol/L (136-145); Total Protein 7.8 g/dL (5.7-8.2)
[2025-06-19 09:27] LABS: Alkaline Phosphatase 116 U/L (46-116); Calcium 8.6 mg/dL (8.7-10.4); Glucose 118 mg/dL (74-106)
== END 2025-06-19 17:00 | disposition home or self-care (01) ==
LOC: LAB 07:55
PROVIDERS: ATTEND Student in an Organized Health Care Education/Training Program
DX: I10 Essential (primary) hypertension (principal); E11.9 Type 2 diabetes mellitus without complications; Z12.11 Encounter for screening for malignant neoplasm of colon
CPT/HCPCS: 36415; 80053; 83036; 85025

== ENCOUNTER 2025-06-23 13:54 | Outpatient (CLI) | payer MEDICARE, BC | END 2025-06-23 17:00 | disposition home or self-care (01) | LOC: LAB 13:54 | PROVIDERS: ATTEND Student in an Organized Health Care Education/Training Program | DX: I10 Essential (primary) hypertension (principal); E11.9 Type 2 diabetes mellitus without complications; Z12.11 Encounter for screening for malignant neoplasm of colon | CPT/HCPCS: 82274 ==